=== PATIENT | female | born 1960 | race Caucasian/White ===

== ENCOUNTER → 2017-05-25 | Outpatient (CLI) | payer BC | LOC: FIMAGING 11:05 | PROVIDERS: ATTEND Family Medicine | DX: Z12.31 Encounter for screening mammogram for malignant neoplasm of breast (principal) | CPT/HCPCS: G0202 ==

== ENCOUNTER → 2017-06-07 | Outpatient (CLI) | payer BC | LOC: FIMAGING 12:31 | PROVIDERS: ATTEND Family Medicine | DX: R92.8 Other abnormal and inconclusive findings on diagnostic imaging of breast (principal) | CPT/HCPCS: G0206 ==